=== PATIENT | female | born 1945 | race Caucasian/White ===

== ENCOUNTER 2023-01-09 18:13 | Inpatient (IN) | payer MEDICARE, OTHER ==
[~2023-01-09] VITALS: Ht 162.6 cm; Wt 54.4 kg
--- NOTE | 2023-01-09 19:01 | NUR ---
Dr Thorne is at bedside in the ER hallway. "Plan to admit" per Dr Thorne. ER registration/admitting staff Erinn notified.
--- NOTE | 2023-01-09 19:08 | NUR ---
Patient is still in the ER hallway, still for triage and pending available ER room. Nursing SBAR to discharge planner Adrian.
[2023-01-09] MEDS ORDERED: CEFTRIAXONE 1 G in IV DEXTROSE 5% 50 ML IV ONE (19:45)
[2023-01-09] MEDS ORDERED: VANCOMYCIN IV 1,000 MG in IV DEXTROSE 5% 250 ML IV ONE (19:45)
[2023-01-09 19:53] LABS: HEMATOCRIT 43.6 % (31.2-41.9); MEAN CORPUSCULAR VOLUME 100.5 fL (75.5-95.3); PLATELET COUNT (AUTO) 446 K/uL (179-408)
[2023-01-09] MEDS ORDERED: ASPI-612 PO (20:01)
[2023-01-09] MEDS ORDERED: FLUO20CA42 PO (20:01)
[2023-01-09] MEDS ORDERED: PRIM250T32 PO (20:01)
[2023-01-09] MEDS ORDERED: LORA0.5T48 PO (20:01)
[2023-01-09] MEDS ORDERED: MUPI1OIN5 TP (20:01)
[2023-01-09 20:12] LABS: ALANINE AMINOTRANSFERASE 33 U/L (14-59); ALKALINE PHOSPHATASE 168 U/L (50-136); ASPARTATE AMINOTRANSFERASE 31 U/L (15-37); BILIRUBIN,DIRECT 0.1 mg/dL (0.0-0.2); BILIRUBIN,TOTAL 0.4 mg/dL (0.2-1.0); CARBON DIOXIDE 27 mmol/L (21-32); CHLORIDE 103 mmol/L (98-107); CREATININE 0.9 mg/dL (0.6-1.3); GLUCOSE 87 mg/dL (74-106); POTASSIUM 4.6 mmol/L (3.5-5.1); TOTAL PROTEIN, SERUM 8.2 g/dL (6.4-8.2); UREA NITROGEN, BLOOD 24 mg/dL (7-18)
[2023-01-09] MEDS ORDERED: SWABABLE VALVE TRANSFER SET EA MC ONE (20:17)
[2023-01-09] MEDS ORDERED: IOHEXOL 300MG/ML 100 ML INFUS..BTL ONE (20:17)
--- NOTE | 2023-01-09 20:50 | NUR ---
PT TAKEN TO CT VIA RSANDHYA.
[2023-01-09] MEDS ORDERED: CEFTRIAXONE /D5W 50ML IVPB **ER PYXIS IV ONE (21:12)
[2023-01-09] MEDS ORDERED: VANCOMYCIN IV 200 ML ONE (21:12)
--- NOTE | 2023-01-09 21:30 | NUR ---
IMAGING CALLED WITH REPORT OF 5 TH METETARSAL FX OF HEAD AND NECK, WILL REPORT TO .
--- NOTE | 2023-01-09 21:52 | NUR ---
Paged Epic panel for admission of patient, waiting for Brian Cevallos to call back.
[2023-01-09] MEDS ORDERED: LORAZEPAM 0.5 MG TABLET PO ONE (22:00)
[2023-01-09] MEDS ORDERED: LORAZEPAM 1 MG TABLET ONE (22:09)
[2023-01-09] MEDS ORDERED: ONDANSETRON 4 MG/2 ML VIAL IV PRN (22:45)
[2023-01-09] MEDS ORDERED: REMEDY ESSENTIAL ZINC PASTE 113 GM TP PRN (22:45)
[2023-01-09] MEDS ORDERED: LORAZEPAM 0.5 MG TABLET PO PRN (22:45)
[2023-01-09] MEDS ORDERED: ACETAMINOPHEN 325 MG TABLET PO PRN (22:45)
[2023-01-09] MEDS ORDERED: MAGNESIUM HYDROXIDE 30 ML LIQUID UDC PO PRN (22:45)
--- NOTE | 2023-01-09 23:45 | NUR ---
PT SLEEPING QUIETLY,ON MONITOR WITH VSS AND NAD OBSERVED.
[2023-01-10] MEDS ORDERED: LORAZEPAM 0.5 MG TABLET ONE ×3 (05:23→15:45)
--- NOTE | 2023-01-10 06:10 | NUR ---
LAB AT BEDSIDE DRAWING BLOOD.
[2023-01-10] MEDS: LORAZEPAM 1 MG TABLET PO PRN ×3 (06:30→08:54)
[2023-01-10] MEDS ORDERED: LORAZEPAM 1 MG TABLET ONE ×2 (06:34→08:05)
[2023-01-10 06:59] LABS: CARBON DIOXIDE 27 mmol/L (21-32); CHLORIDE 105 mmol/L (98-107); CHOLESTEROL 152 mg/dL (<200); CREATININE 0.7 mg/dL (0.6-1.3); GLUCOSE 83 mg/dL (74-106); HDL CHOLESTEROL 55 mg/dL (40-60); MAGNESIUM 1.5 mg/dL (1.8-2.4); PHOSPHOROUS 3.2 mg/dL (2.5-4.9); POTASSIUM 4.1 mmol/L (3.5-5.1); TRIGLYCERIDES 118 MG/DL (30-150); UREA NITROGEN, BLOOD 18 mg/dL (7-18)
[2023-01-10 07:07] LABS: HEMATOCRIT 39.9 % (31.2-41.9); MEAN CORPUSCULAR HEMOGLOBIN 33.7 uug (24.7-32.8); MEAN CORPUSCULAR VOLUME 99.4 fL (75.5-95.3); PLATELET COUNT (AUTO) 417 K/uL (179-408)
--- NOTE | 2023-01-10 07:44 | NUR ---
SBAR received from HARRIS Manzanares. Patient was seen walking in the ER hallway using her walker, +slow steady gait seen. Patient was reminded to stay in her room while waitng for her medical-surgical bed and nurse at the 3rd floor or 2nd floor. RN sheet metal duct worker supervisor Traci notified.
[2023-01-10] MEDS ORDERED: ACETAMINOPHEN 325 MG TABLET ONE ×2 (08:05→15:45)
--- NOTE | 2023-01-10 08:08 | NUR ---
Patient is waiting for an available medical-surgical bed and nurse at this time. Patient was reported to be in the cafeteria by security. Patient was escorted back to ER room 5. Patient demanded 7 sausages for breakfast. Patient's primary doctor/hospitalist was paged re: diet change, pending SHEET METAL FORMER/MD callback. Patient was reported smoking as well by previous RN Glenna. Patient was reminded repeatedly that she needs to be in her room until an available medical-surgical bed and nurse opens in the 3rd floor or 2nd floor.
[2023-01-10] MEDS: FLUOXETINE HCL 20 MG CAPSULE PO SCH (08:54)
--- NOTE | 2023-01-10 09:21 | NUR ---
Patient insisted on smoking outside ER. employment officer and RN Open Cut Examiner Traci notified. [facility] hospitalist notified re: patient's smoking needs while in ER.
[2023-01-10] MEDS ORDERED: MAGNESIUM OXIDE 400 MG TABLET PO ONE (09:30)
--- NOTE | 2023-01-10 10:19 | NUR ---
Patient ate hot breakfast tray with good appetite. Patient ate >75% of her meal, pending callback from hospitalist re: diet and smoking privileges while admitted in the hospital.
[2023-01-10 10:22] LABS: THYROID STIMULATING HORMONE 1.615 mIU/mL (0.358-3.740)
--- NOTE | 2023-01-10 11:58 | NUR ---
WOUND CARE CONSULT: PT SLEEPING AT THIS TIME. PER STATION EXAMINER, PT WAS PREVIOUSLY AGITATED. REVIEWED CHART, NURSING DOCUMENTATION AND CT SCAN OF RT FOOT WHICH INDICATES ABSCESS AND FRACTURE, PRESENT ON ADMISSION. DR ABBOTT CALLED FOR DPM CONSULT. IN AGREEMENT WITH PLAN OF CARE.
--- NOTE | 2023-01-10 13:21 | NUR ---
Hot lunch tray at bedside. Patient is resting comfortably on gurney with eyes closed, pending available 3rd floor vs 2nd floor medical-surgical floor and nurse at this time, no acute change in condition seen.
--- NOTE | 2023-01-10 16:16 | NUR ---
Dr Marx is here in ER to see the patient. Dr Marx verbally notified re: smoking issues/behaviour and insistent ativan demands of this patient.
--- NOTE | 2023-01-10 16:34 | NUR ---
"Room 323 and nurse Billy" for this patient per RN awning hanger supervisor Traci. I am attempting to give report at this time.
[2023-01-10] MEDS: VANCOMYCIN IV 750 MG in IV DEXTROSE 5% 250 ML IV SCH (18:40)
--- NOTE | 2023-01-10 18:49 | NUR ---
right fott wound noted. picture taken and placed in chart.
[2023-01-10] MEDS ORDERED: VANCOMYCIN IV 750 MG in IV DEXTROSE 5% 250 ML IV ONE (19:00)
--- NOTE | 2023-01-10 19:17 | NUR ---
report received tomas light RN. pt presented to ER with right foot infection.nt was Dx of right foot cellulitis/abscess. pt alert and oriented. denies any pain. pt is an active smoker and want to go out to smoke. pt ambulatory with FWW. pt have a generalized tremors. pt will go to rm [address]. Dr[address] sandoval will f/u care.
--- NOTE | 2023-01-10 19:20 | NUR ---
pt home meds was logged and sent to pharmacy.
[2023-01-10] MEDS ORDERED: LORAZEPAM 1 MG TABLET PO PRN (19:45)
[2023-01-10 20:00] VITALS: BP 135/78
[2023-01-10] MEDS: LORAZEPAM 2 MG/1 ML VIAL IV PRN (20:31)
[2023-01-10] MEDS ORDERED: CEFTRIAXONE 1 G VIAL ONE (20:49)
[2023-01-10] MEDS: PRIMIDONE 250 MG TABLET PO SCH (21:00)
[2023-01-10] MEDS: CEFTRIAXONE 2 G in IV DEXTROSE 5% 100 ML IV SCH (21:10)
[2023-01-10] MEDS ORDERED: VANCOMYCIN IV 750 MG in IV DEXTROSE 5% 250 ML IV SCH (22:00)
[2023-01-11 04:00] VITALS: BP 120/74
[2023-01-11 04:53] VITALS: BP 120/74
--- NOTE | 2023-01-11 06:00 | NUR ---
Patient extremely anxious at the start of shift, going in patient's rooms, pulling her IV and going downstairs to smoke. Dr. Rankin notified and gave an order for Ativan 2mg IV, she eventually fell asleep around 03:00. Patient NPO since midnight for left foot debridement, pre-op checklist needs to be completed.
[2023-01-11] MEDS: FLUOXETINE HCL 20 MG CAPSULE PO SCH (09:41)
[2023-01-11] MEDS: LORAZEPAM 2 MG/1 ML VIAL IV PRN ×3 (09:42→23:52)
--- NOTE | 2023-01-11 11:00 | NUR ---
Patient is alert and verbal very anxious, on unit asking staff for coffee after she was instructed she is nothing by due to upcoming procedure later in the day. Patient was given ativan for increase anxiety with some effect.
[2023-01-11 11:34] VITALS: BP 121/58
[2023-01-11] MEDS ORDERED: IPRATROPIUM BROMIDE 0.5 MG/2.5 ML NEBU NEB PRN (11:45)
[2023-01-11] MEDS ORDERED: ALBUTEROL SULFATE 2.5 MG/ 0.5 ML NEBU NEB PRN (11:45)
[2023-01-11] MEDS ORDERED: VANCOMYCIN 1000 MG VIAL ONE (11:57)
[2023-01-11] MEDS ORDERED: BUPIVACAINE PF 0.5% 30 ML VIAL ONE (11:57)
[2023-01-11] MEDS: FLUTICASONE/VILANTEROL 1 EACH BLST.W.DEV INH SCH (12:57)
--- NOTE | 2023-01-11 13:00 | NUR ---
Patient left unit to OR yet to return.
[2023-01-11] MEDS ORDERED: MIDAZOLAM HCL 2 MG/2 ML VIAL ONE (13:48)
[2023-01-11] MEDS ORDERED: FENTANYL CITRATE 100 MCG/2 ML AMPUL ONE (13:48)
[2023-01-11] MEDS ORDERED: PROPOFOL 200 MG/20 ML BOTTLE ONE (14:37)
[2023-01-11 16:12] VITALS: BP 149/75
[2023-01-11] MEDS ORDERED: NAPROXEN 500 MG TABLET PO PRN (17:45)
--- NOTE | 2023-01-11 18:30 | NUR ---
Patient return to unit post surgical procedure , awake alert and verbal. Post-op instructions read to patient as stated from surgeon order. Patient verbalized c/o pain, site noted with no bleeding, good capillary refill, dressing intact.
[2023-01-11] MEDS: VANCOMYCIN IV 750 MG in IV DEXTROSE 5% 250 ML IV SCH (19:27)
[2023-01-11] MEDS: IV NS 1000 ML 1,000 ML IV PRN (20:00)
[2023-01-11 20:18] VITALS: BP 118/69
[2023-01-11] MEDS: PRIMIDONE 250 MG TABLET PO SCH (22:23)
[2023-01-11] MEDS: CEFTRIAXONE 2 G in IV DEXTROSE 5% 100 ML IV SCH (22:24)
[2023-01-12 04:30] VITALS: BP 122/67
[2023-01-12] MEDS: LORAZEPAM 2 MG/1 ML VIAL IV PRN ×3 (06:02→19:24)
[2023-01-12] MEDS: FLUOXETINE HCL 20 MG CAPSULE PO SCH (08:32)
[2023-01-12] MEDS: FLUTICASONE/VILANTEROL 1 EACH BLST.W.DEV INH SCH (08:32)
[2023-01-12 09:37] LABS: CARBON DIOXIDE 29 mmol/L (21-32); CHLORIDE 106 mmol/L (98-107); CREATININE 0.9 mg/dL (0.6-1.3); GLUCOSE 94 mg/dL (74-106); POTASSIUM 4.1 mmol/L (3.5-5.1); UREA NITROGEN, BLOOD 19 mg/dL (7-18); VANCOMYCIN,TROUGH 14.8 ug/mL (12.0-20.0)
[2023-01-12] MEDS: VANCOMYCIN IV 500 MG in IV DEXTROSE 5% 100 ML IV SCH (10:24)
[2023-01-12 12:33] VITALS: BP 124/78
[2023-01-12 16:43] VITALS: BP 118/64
--- NOTE | 2023-01-12 18:55 | NUR ---
patient is noncompliant with non weight bearing status, patient ambulates with fww in the hallway, risks and benefits explained, patient verbalized understanding of it. no events noted during shift.
[2023-01-12 20:11] VITALS: BP 140/74
[2023-01-12] MEDS: CEFTRIAXONE 2 G in IV DEXTROSE 5% 100 ML IV SCH (20:29)
[2023-01-12] MEDS: PRIMIDONE 250 MG TABLET PO SCH (20:29)
[2023-01-12] MEDS: IV NS 1000 ML 1,000 ML IV PRN (20:31)
[2023-01-13] MEDS: VANCOMYCIN IV 500 MG in IV DEXTROSE 5% 100 ML IV SCH ×2 (01:02→15:00)
[2023-01-13] MEDS: LORAZEPAM 2 MG/1 ML VIAL IV PRN ×4 (01:25→20:37)
[2023-01-13 04:22] VITALS: BP 128/88
[2023-01-13 06:02] LABS: HEMATOCRIT 42.9 % (31.2-41.9); MEAN CORPUSCULAR HEMOGLOBIN 33.2 uug (24.7-32.8); PLATELET COUNT (AUTO) 485 K/uL (179-408)
[2023-01-13 06:25] LABS: BILIRUBIN,TOTAL 0.2 mg/dL (0.2-1.0); CREATININE 0.8 mg/dL (0.6-1.3); MAGNESIUM 1.6 mg/dL (1.8-2.4); PHOSPHOROUS 2.7 mg/dL (2.5-4.9); POTASSIUM 3.7 mmol/L (3.5-5.1); TOTAL PROTEIN, SERUM 6.7 g/dL (6.4-8.2)
[2023-01-13] MEDS: FLUOXETINE HCL 20 MG CAPSULE PO SCH (08:24)
[2023-01-13] MEDS: FLUTICASONE/VILANTEROL 1 EACH BLST.W.DEV INH SCH (08:27)
[2023-01-13] MEDS: NICOTINE POLACRILEX 2 MG GUM BC PRN (08:28)
[2023-01-13 11:37] VITALS: BP 141/76
[2023-01-13] MEDS ORDERED: MAGNESIUM OXIDE 400 MG TABLET PO ONE (12:30)
[2023-01-13] MEDS: IV NS 1000 ML 1,000 ML IV PRN (13:17)
[2023-01-13 16:03] VITALS: BP 154/88
--- NOTE | 2023-01-13 18:00 | NUR ---
Pt's anxiety managed with ativan. Pt non compliant with NWB when getting oob.
[2023-01-13 20:00] VITALS: BP 141/72
[2023-01-13] MEDS: PRIMIDONE 250 MG TABLET PO SCH (20:32)
[2023-01-13] MEDS: CEFTRIAXONE 2 G in IV DEXTROSE 5% 100 ML IV SCH (20:32)
[2023-01-14] MEDS: LORAZEPAM 2 MG/1 ML VIAL IV PRN ×4 (03:03→20:32)
[2023-01-14 04:00] VITALS: BP 133/69
[2023-01-14 04:30] LABS: CARBON DIOXIDE 26 mmol/L (21-32); CHLORIDE 108 mmol/L (98-107); CREATININE 0.9 mg/dL (0.6-1.3); GLUCOSE 93 mg/dL (74-106); UREA NITROGEN, BLOOD 15 mg/dL (7-18)
[2023-01-14] MEDS: VANCOMYCIN IV 500 MG in IV DEXTROSE 5% 100 ML IV SCH (04:58)
[2023-01-14] MEDS: FLUOXETINE HCL 20 MG CAPSULE PO SCH (09:19)
[2023-01-14] MEDS: NICOTINE POLACRILEX 2 MG GUM BC PRN ×3 (09:19→20:32)
[2023-01-14] MEDS: ENSURE ENLIVE (VAN) 240 ML LIQUID PO SCH (09:20)
[2023-01-14] MEDS: FLUTICASONE/VILANTEROL 1 EACH BLST.W.DEV INH SCH (09:20)
[2023-01-14 11:53] VITALS: BP 141/95
[2023-01-14] MEDS: IV NS 1000 ML 1,000 ML IV PRN (14:18)
[2023-01-14 16:06] VITALS: BP 118/70
[2023-01-14] MEDS: VANCOMYCIN IV 750 MG in IV DEXTROSE 5% 250 ML IV SCH (17:44)
[2023-01-14] MEDS: CEFTRIAXONE 2 G in IV DEXTROSE 5% 100 ML IV SCH (20:23)
[2023-01-14] MEDS: PRIMIDONE 250 MG TABLET PO SCH (20:32)
[2023-01-15] MEDS: NICOTINE POLACRILEX 2 MG GUM BC PRN ×2 (00:48→17:25)
[2023-01-15 04:00] VITALS: BP 129/70
[2023-01-15 06:38] LABS: CARBON DIOXIDE 30 mmol/L (21-32); CHLORIDE 105 mmol/L (98-107); CREATININE 0.9 mg/dL (0.6-1.3); GLUCOSE 97 mg/dL (74-106); MAGNESIUM 1.7 mg/dL (1.8-2.4); PHOSPHOROUS 3.5 mg/dL (2.5-4.9); UREA NITROGEN, BLOOD 13 mg/dL (7-18)
[2023-01-15 06:39] LABS: HEMATOCRIT 47.4 % (31.2-41.9); MEAN CORPUSCULAR HEMOGLOBIN 33.6 uug (24.7-32.8); MEAN CORPUSCULAR VOLUME 100.9 fL (75.5-95.3); PLATELET COUNT (AUTO) 495 K/uL (179-408)
--- NOTE | 2023-01-15 07:15 | NUR ---
RN NOTE - Patient is alert and verbal. PT was found with cigarette in her room and was asking this nurse for a water meter mechanic. Pt was reminded that she could not smoke while admitted. Pt was given Nicotine pill twice during the shift and ativan x 1 for increased anxiety. Pt slept well
[2023-01-15] MEDS: FLUOXETINE HCL 20 MG CAPSULE PO SCH (08:30)
[2023-01-15] MEDS: FLUTICASONE/VILANTEROL 1 EACH BLST.W.DEV INH SCH (08:30)
[2023-01-15] MEDS: ENSURE ENLIVE (VAN) 240 ML LIQUID PO SCH (08:31)
[2023-01-15] MEDS ORDERED: MAGNESIUM OXIDE 400 MG TABLET PO ONE (11:00)
[2023-01-15] MEDS: MUPIROCIN 2% OINT 22 GM TUBE TP SCH ×2 (11:01→21:27)
[2023-01-15] MEDS: LORAZEPAM 2 MG/1 ML VIAL IV PRN ×3 (11:01→23:40)
[2023-01-15 11:47] VITALS: BP 146/74
[2023-01-15] MEDS: VANCOMYCIN IV 750 MG in IV DEXTROSE 5% 250 ML IV SCH (12:12)
[2023-01-15] MEDS: IV NS 1000 ML 1,000 ML IV PRN (17:29)
--- NOTE | 2023-01-15 18:00 | NUR ---
Dressing Change done on right foot I/D as ordered. Noted sloughing of tissues no odor noted, scant serous drainage noted. Pt's urgency of smoking relieved by Nicorette gum and ativan. Pt is in no acute distress. Pt still non compliant with NWB status when getting to commode.
[2023-01-15 20:00] VITALS: BP 136/71
[2023-01-15] MEDS: PRIMIDONE 250 MG TABLET PO SCH (20:54)
[2023-01-15] MEDS: CEFTRIAXONE 2 G in IV DEXTROSE 5% 100 ML IV SCH (20:54)
[2023-01-16] MEDS: VANCOMYCIN IV 750 MG in IV DEXTROSE 5% 250 ML IV SCH (05:46)
[2023-01-16 05:56] VITALS: BP 107/46
[2023-01-16] MEDS ORDERED: LORAZEPAM 2 MG/1 ML VIAL ONE (06:26)
[2023-01-16] MEDS: LORAZEPAM 2 MG/1 ML VIAL IV PRN ×3 (06:34→23:36)
--- NOTE | 2023-01-16 07:17 | NUR ---
Slept well throughout the night, no noted acute distress. Non compliant with NWB status on R foot when transferring from bed to bed side commode, risks and benefits explained. Needs assessed and attended to.
[2023-01-16] MEDS: FLUOXETINE HCL 20 MG CAPSULE PO SCH (08:50)
[2023-01-16] MEDS: MUPIROCIN 2% OINT 22 GM TUBE TP SCH ×2 (08:52→21:21)
[2023-01-16] MEDS: FLUTICASONE/VILANTEROL 1 EACH BLST.W.DEV INH SCH (08:52)
[2023-01-16] MEDS: ENSURE ENLIVE (VAN) 240 ML LIQUID PO SCH (08:53)
[2023-01-16] MEDS ORDERED: NAPROXEN 500 MG TABLET PO PRN (11:30)
[2023-01-16 12:00] VITALS: BP 151/86
[2023-01-16] MEDS ORDERED: IV NS 1000 ML 1,000 ML IV ONE (12:00)
[2023-01-16 16:00] VITALS: BP 138/80
[2023-01-16] MEDS: IV NS 1000 ML 1,000 ML IV PRN (17:20)
--- NOTE | 2023-01-16 17:50 | NUR ---
Pt. has been stable during the shift. No c/o pain. Skin treatment done. Call light within reach. All need attended and met. Will keep monitoring the patient.
--- NOTE | 2023-01-16 18:17 | NUR ---
Received a call from pharmacy (Ceci) and notified that pt. has order for vanco trough at 2300. Endorse to shift leader to administer the mid night dose of vanco if result is less than 20 and hold it if result is more than 20. Will endorse shift leader nurse.
[2023-01-16 20:00] VITALS: BP 122/68
[2023-01-16] MEDS: CEFTRIAXONE 2 G in IV DEXTROSE 5% 100 ML IV SCH (21:15)
[2023-01-16] MEDS: PRIMIDONE 250 MG TABLET PO SCH (21:16)
[2023-01-17] MEDS: VANCOMYCIN IV 750 MG in IV DEXTROSE 5% 250 ML IV SCH (00:03)
[2023-01-17 04:00] VITALS: BP 125/75
--- NOTE | 2023-01-17 05:41 | NUR ---
AOx3. Received pt with IV on R FA, leaking. Reinserted IV on L hand 22g, intact and infusing well. On room air sating at 88%. Placed pt on O2 1LPM sating at 94%. Pt comfortable. No respiratory distress noted. Vanco trough 9.0. Vanco given as ordered. No adverse reaction noted. All needs attended. Safety precautions maintained.
[2023-01-17 06:49] LABS: CARBON DIOXIDE 27 mmol/L (21-32); CHLORIDE 103 mmol/L (98-107); CREATININE 0.6 mg/dL (0.6-1.3); GLUCOSE 99 mg/dL (74-106); UREA NITROGEN, BLOOD 20 mg/dL (7-18)
[2023-01-17 08:00] VITALS: BP 124/64
[2023-01-17] MEDS: FLUOXETINE HCL 20 MG CAPSULE PO SCH (09:04)
[2023-01-17] MEDS: FLUTICASONE/VILANTEROL 1 EACH BLST.W.DEV INH SCH (09:05)
[2023-01-17] MEDS: ENSURE ENLIVE (VAN) 240 ML LIQUID PO SCH (09:06)
[2023-01-17] MEDS: IV NS 1000 ML 1,000 ML IV PRN (09:06)
[2023-01-17] MEDS: MUPIROCIN 2% OINT 22 GM TUBE TP SCH (09:06)
[2023-01-17] MEDS: LORAZEPAM 2 MG/1 ML VIAL IV PRN ×2 (11:42→17:52)
[2023-01-17 11:55] VITALS: BP 126/76
[2023-01-17] MEDS ORDERED: VANCOMYCIN IV 750 MG in IV DEXTROSE 5% 250 ML IV SCH (14:00)
[2023-01-17] MEDS ORDERED: CEFT2FRO2 IV (14:52)
[2023-01-17] MEDS ORDERED: VANC750F2 IV (14:52)
[2023-01-17] MEDS: NICOTINE POLACRILEX 2 MG GUM BC PRN (16:55)
[2023-01-17 16:58] VITALS: BP 118/82
--- NOTE | 2023-01-17 18:27 | NUR ---
Received patient lying in bed awake, alert and oriented with ongoing IVF NS @ 75cc/hr infusing well at left hand g.22 intact. No complain at this time, with O2 inhalation at 1 lpm via nasal cannula. Not in distress. On regular diet. Vital signs taken and recorded Medications given and recorded. Ativan 2mg IV given prn as needed for anxiety. Keep patient monitored. Patient has ordered for discharge, carried out orders and prepared discharge summary Report given to nurse on duty at [facility] Needs attended
--- NOTE | 2023-01-17 19:00 | NUR ---
Patient assisted for discharge product picker by ambulance attendance using stretcher Given and instructed discharge summary Answered all questions, verbalized understanding Discharge at 1900H
[2023-01-17] MEDS ORDERED: DOXYCYCLINE HYCLATE 100 MG TABLET PO SCH (21:00)
== END 2023-01-17 19:30 | DRG 987 ==
LOC: ER 18:15 → UNDOADMIN 22:44 → TRANSITION 22:44 → MEDSURG3 01-10 16:00
PROVIDERS: ADMIT Nurse Practitioner Family; ATTEND Internal Medicine
PROC: 0QBN0ZZ Excision of Right Metatarsal, Open Approach (ICD-10-PCS; principal; 2023-01-11)
PROC: 3E0102A Introduction of Anti-Infective Envelope into Subcutaneous Tissue, Open Approach (ICD-10-PCS; 2023-01-11)
DX: L03.115 Cellulitis of right lower limb (principal); J96.21 Acute and chronic respiratory failure with hypoxia; M86.8X7 Other osteomyelitis, ankle and foot; L02.611 Cutaneous abscess of right foot; F17.210 Nicotine dependence, cigarettes, uncomplicated; S92.351A Displaced fracture of fifth metatarsal bone, right foot, initial encounter for closed fracture; W22.03XA Walked into furniture, initial encounter; Y92.092 Bedroom in other non-institutional residence as the place of occurrence of the external cause; J44.9 Chronic obstructive pulmonary disease, unspecified; Z96.643 Presence of artificial hip joint, bilateral; M81.0 Age-related osteoporosis without current pathological fracture; L97.512 Non-pressure chronic ulcer of other part of right foot with fat layer exposed; F32.A Depression, unspecified; F41.9 Anxiety disorder, unspecified; M19.90 Unspecified osteoarthritis, unspecified site; D75.89 Other specified diseases of blood and blood-forming organs; Z90.710 Acquired absence of both cervix and uterus; Z79.82 Long term (current) use of aspirin
CPT/HCPCS: 36415; 71045; 83735; 84100; 84443; 85025; 85651; 85730; 86140; 87040; 93005; A4649; C1713; G0378; J0696; J2060; J2250; J3010; J3370; J3490; J7040; J7050; Q9967